=== PATIENT | male | born 1985 | race Caucasian/White ===

== ENCOUNTER 2017-01-14 10:35 | Emergency (ER) | payer SELFPAY ==
[~2017-01-14 10:35] MED LIST: NAPR550 PO; SULF1TAB47 PO; Z.0.NO CURRENT MEDS
[2017-01-14 10:37] VITALS: BP 146/95; PULSE 85; RESP 14; TEMP 98; O2SAT 98
[2017-01-14] MEDS ORDERED: GABA300C5 PO (12:11)
[2017-01-14] MEDS ORDERED: AUGM875T3 PO (12:16)
[2017-01-14] MEDS ORDERED: IBUP800T23 PO (12:16)
--- NOTE | 2017-01-14 12:19 | PD ---
HPI Chief Complaint: Bite or Sting Time Seen by Provider: 12:15 Travel History International Travel<30 days: No Contact w/Intl Traveler<30days: No History of Present Illness HPI 32-year-old male presents to emergency Department with complaint of dog bite wound to right hand that occurred last night. He is unaware of the vaccination status of the dog. He says animal control is going to the agency owner's house to find out vaccination status today. Denies being up-to-date on his tetanus vaccination. Has clean the wound and applied a cover bandage. Denies fever, vomiting. Denies paresthesias, loss of sensation, decreased range of motion, decreased strength to the affected extremity. Denies decreased range of motion to all fingers. Took ibuprofen last night with some relief of pain. Allergies to Risperdal. Has no other medical complaints. No other modifying factors or associated signs and symptoms. PFSH Past Medical History Blood Disorders: No Bipolar Disorder: Yes Anxiety: Yes Depression: Yes Diminished Hearing: No Migraines: Yes Seizures: Yes (3-4 YEARS AGO AFTER A DRUG OVERDOSE) Tetanus Vaccination: > 5 Years Influenza Vaccination: No Past Surgical History Other Surgery: Yes (TUBES BILAT A CHILD) Social History Alcohol Use: Yes (6-12 PACK BEER DAILY) Tobacco Use: Yes (1 TO 1 AND 1/2 PPD) Substance Use: Yes (HISTORY OF XANAX, ECTASY USE (FORMERLY)) Allergies-Medications (Allergen,Severity, Reaction): Coded Allergies: Risperdal (Verified Allergy, Severe, ANAPHYLAXIS, 01/14/17) Reported Meds & Prescriptions Reported Meds & Active Scripts Active Ibuprofen 800 Mg Tab 800 Mg PO Q6HR PRN Augmentin (Amoxicillin-Clavulanate) 875-125 Mg Tab 1 Tab PO BID 10 Days Reported Gabapentin 300 Mg Cap 300 Mg PO QID Review of Systems Except as stated in HPI: all other systems reviewed are Neg Physical Exam Narrative GENERAL: Well-nourished, well-developed male patient, in no acute distress; afebrile, nontoxic-appearing SKIN: Warm and dry. Approximately 1 cm laceration to the right thenar eminence ; without erythema; minimal bright red drainage and with mild edema; All fingers with full range of motion; Thumb with good opposition and full range of motion. Right upper extremity is supple and non-tense with 2+ radial pulse and sensory intact without erythema or edema; no lymphangitis. HEAD: Atraumatic. Normocephalic. EYES: Pupils equal and round. No scleral icterus. No injection or drainage. ENT: Mucosa pink and moist. Airway patent. NECK: Trachea midline. CARDIOVASCULAR: Regular rate. RESPIRATORY: No accessory muscle use. GASTROINTESTINAL: Obese. MUSCULOSKELETAL: No obvious deformities. No clubbing. No cyanosis. No edema. NEUROLOGICAL: Awake and alert. Oriented 3. No obvious cranial nerve deficits. Motor grossly within normal limits. Normal speech. PSYCHIATRIC: Appropriate mood and affect; insight and judgment normal. Data Data Last Documented VS Vital Signs Date Time Temp Pulse Resp B/P Pulse Ox O2 Delivery O2 Flow Rate FiO2 01/14/17 10:37 98.0 85 14 146/95 98 Orders Hand, Complete (Vhp1bhd) (01/14/17 ) Wound Care (01/14/17 12:23) Tetanus/Diphtheria Tox Adult (Tetanus/Di (01/14/17 12:30) Ibuprofen (Motrin) (01/14/17 12:30) MDM Medical Decision Making Medical Screen Exam Complete: Yes Emergency Medical Condition: Yes Medical Record Reviewed: Yes Differential Diagnosis Dogbite wound, laceration, medical clearance Narrative Course 32-year-old male with right hand laceration secondary to dog bite. The laceration will be left to heal by secondary intention. Vaccination status of dog is unknown. Patient declines initiation of rabies protocol at this time. He wants to obtain the dog's vaccination status first. Insect patient to follow up with health department or return to the emergency department for rabies vaccination if wanted. Wound care provided. Tetanus updated in the ER. 1229: Right hand x-ray with no acute findings. Ibuprofen and Augmentin prescribed for home. Patient verbalizes understanding and agreement with treatment plan. Patient is medically cleared and stable for discharge. Discussed reasons to return to the emergency department. Instructed patient to follow up with primary care provider. Patient agrees with treatment plan. The patients vital signs are stable and the patient is stable for outpatient follow- up and treatment. Patient discharged home, stable and in no acute distress. Diagnosis Primary Impression: Dog bite of right hand Qualified Code: S61.451A - Dog bite of right hand, initial encounter Additional Impression: Laceration of hand, right Qualified Code: S61.411A - Laceration of right hand without foreign body, initial encounter Referrals: [facility] Primary Care Physician Patient Instructions: Animal Bite (ED), General Instructions Departure Forms: Tests/Procedures, Work Release Enter return to work date: Jan 15, 2017 Additional Instructions: Keep area clean and dry Ibuprofen or Tylenol as directed and as needed for pain and inflammation Ice pack to area as needed to decrease pain Follow-up with primary care provider Follow up with health department Return to the emergency department immediately with worsening of symptoms, particularly if reddened streaks up or down the affected extremity from the wound site, fever, numbness/tingling in the affected extremity, loss of sensation in the affected extremity, severe swelling of the affected Med/Other Pt SpecificInfo: Prescription(s) given Scripts Ibuprofen 800 Mg [id number] Mg PO Q6HR PRN (PAIN) #30 TAB Ref 0 Prov:Felicity Engel 01/14/17 Amoxicillin-Clavulanate (Augmentin)875-125 Mg Tab1 Tab PO BID 10 Days Ref 0 Prov:Felicity Engel 01/14/17 Disposition: 01 DISCHARGE HOME Condition: Stable Felicity Engel Jan 14, 2017 12:19
--- NOTE | 2017-01-14 12:26 | RADRPT ---
EXAM DATE/TIME: 01/14/2017 11:43 [facility] COMPARISON: No previous studies available for comparison. INDICATIONS : Right hand pain, dog bite. MEDICAL HISTORY : None. SURGICAL HISTORY : None. ENCOUNTER: Initial ACUITY: 2 days PAIN SCORE: 7/10 LOCATION: Right hand, first metacarpal FINDINGS: 3 views of the right hand. Bone alignment within normal limits. No evidence of fracture. CONCLUSION: No evidence of fracture. Tez Bishop MD on January 14, 2017 at 12:23 Board Certified Radiologist. This report was verified electronically.
[2017-01-14] MEDS ORDERED: IBUPROFEN 800 MG TAB PO ONE (12:30)
[2017-01-14] MEDS ORDERED: TETANUS/DIPHTHERIA TOXOID ADULT 0.5 ML VIAL IM ONE (12:30)
== END 2017-01-14 12:57 | disposition home or self-care (01) ==
LOC: NEPK 10:35
DX: S61.451A Open bite of right hand, initial encounter (principal); W54.0XXA Bitten by dog, initial encounter; Z23 Encounter for immunization
CPT/HCPCS: 73130; 90471; 90714

== ENCOUNTER 2017-05-01 13:14 | Emergency (ER) | payer SELFPAY ==
[~2017-05-01] VITALS: Ht 180.3 cm; Wt 93.1 kg
[~2017-05-01 13:14] MED LIST changes: +AUGM875T3 PO; +GABA300C5 PO; +IBUP800T23 PO; -NAPR550 PO; -SULF1TAB47 PO; -Z.0.NO CURRENT MEDS
[2017-05-01 13:15] VITALS: BP 128/75; PULSE 93; RESP 24; TEMP 98.6; O2SAT 97
--- NOTE | 2017-05-01 13:26 | PD ---
Physical Exam Date Seen by Provider: May 01, 2017 Time Seen by Provider: 13:22 Narrative 32-year-old white male presents to emergency department with complaints of left inguinal hernia. He states that he had carried large amount of furniture for 11 hours moving a family member the day before. He states that in the last 24 hours she's noticed a large lump in his left scrotum. No fever chills. No nausea vomiting. No urinary stooling issues. Pain is moderate Vital signs reviewed. Awaiting bed placement. Data Data Last Documented VS Vital Signs Date Time Temp Pulse Resp B/P (MAP) Pulse Ox O2 Delivery O2 Flow Rate FiO2 05/01/17 13:15 98.6 93 24 128/75 (92) 97 Room Air [facility] Medical Record Reviewed: No Supervised Visit with ANTONIA: Jordan Borja May 01, 2017 13:26
[2017-05-01] MEDS ORDERED: AZITHROMYCIN 250 MG TAB PO ONE (13:45)
[2017-05-01] MEDS ORDERED: cefTRIAXone 250 MG VIAL IM ONE (13:45)
[2017-05-01] MEDS ORDERED: DOXYCYCLINE HYCLATE 100 MG CAP PO ONE (13:45)
[2017-05-01] MEDS ORDERED: ONDANSETRON HCL 4 MG/2 ML VIAL IVP ONE (13:45)
[2017-05-01] MEDS ORDERED: SODIUM CHLORIDE 0.9% FLUSH 10 ML FLUSH IVF PRN (13:45)
[2017-05-01] MEDS ORDERED: LIDOCAINE HCL 1% 50 ML VIAL XX ONE (13:45)
[2017-05-01] MEDS ORDERED: MORPHINE SULFATE 4 MG/ML INJ IV PUSH ONE (13:45)
--- NOTE | 2017-05-01 14:41 | RADRPT ---
EXAM DATE/TIME: 05/01/2017 13:52 [facility] COMPARISON: No previous studies available for comparison. INDICATIONS : Left inguinal/scrotal pain. MEDICAL HISTORY : Seizures. Migraines. Bipolar disorder. Depression. Anxiety. Substance use. SURGICAL HISTORY : Bilateral tympanostomy tubes. ENCOUNTER: Initial ACUITY: 1 day PAIN SCORE: 10/10 LOCATION: Bilateral scrotum. MEASUREMENTS: RIGHT TESTICLE: 4.0 x 2.6 x 2.0cm LEFT TESTICLE: 4.3 x 2.7 x 2.6cm FINDINGS: RIGHT TESTICLE: Homogeneous echotexture without intra or extratesticular mass. Blood flow is within normal limits. No hydrocele or varicocele. Epididymis is within normal limits. LEFT TESTICLE: Homogeneous echotexture without intra or extratesticular mass. Blood flow is increased. No signific ant hydrocele or varicocele. Epididymis is enlarged with hypervascularity. SCROTUM: Within normal limits. CONCLUSION: Left epididymitis with likely associated left orchitis. Jethro Perez MD on May 01, 2017 at 14:38 Board Certified Radiologist. This report was verified electronically.
--- NOTE | 2017-05-01 14:42 | PD ---
HPI Chief Complaint: Complaint Time Seen by Provider: 13:28 Travel History International Travel<30 days: No Contact w/Intl Traveler<30days: No Traveled to known affect area: No History of Present Illness HPI Patient is a 32-year-old male presenting to the emergency department for evaluation of possible hernia in his groin. Patient states that days ago he had tenderness in the left testicle, 2 days ago the pain intensified quickly. He states his left testicle is swollen and tender, he also reports dysuria. Patient believes it was related to lifting and helping his girlfriend move 2 days ago. He denies any fever, chills, abdominal pain, back pain. Past medical history is significant for hypertension, bipolar disorder, anxiety, depression. Patient states that he has a history of IV drug use but has not used in over a year since he got out of half-way. He does report using Suboxone occasionally. He has had recent unprotected sex however he is in a monogamous relationship. PFSH Past Medical History Blood Disorders: No Bipolar Disorder: Yes Anxiety: Yes Depression: Yes Diminished Hearing: No Migraines: Yes Seizures: Yes (3-4 YEARS AGO AFTER A DRUG OVERDOSE) Past Surgical History Other Surgery: Yes (TUBES BILAT A CHILD) Social History Alcohol Use: Yes (6-12 PACK BEER DAILY) Tobacco Use: Yes (1 TO 1 AND 1/2 PPD) Substance Use: No (history of IV drug use, clean for over a year) Allergies-Medications (Allergen,Severity, Reaction): Coded Allergies: risperidone (Unverified Allergy, Severe, ANAPHYLAXIS, 03/26/17) Reported Meds & Prescriptions Reported Meds & Active Scripts Active Tramadol (Tramadol HCl) 50 Mg Tab 50 Mg PO Q6H PRN Doxycycline Hyclate DR (Doxycycline Hyclate) 100 Mg Tab 100 Mg PO BID 10 Days Ibuprofen 800 Mg Tab 800 Mg PO Q6HR PRN Augmentin (Amoxicillin-Clavulanate) 875-125 Mg Tab 1 Tab PO BID 10 Days Reported Gabapentin 300 Mg Cap 300 Mg PO QID Review of Systems Except as stated in HPI: all other systems reviewed are Neg Genitourinary: Positive: Dysuria, Other (testicle pain) Physical Exam Narrative GENERAL: Well-developed, well-nourished, alert male. Appears uncomfortable, in no acute distress. SKIN: Warm and dry. HEAD: Atraumatic. Normocephalic. EYES: Pupils equal and round. No scleral icterus. No injection or drainage. ENT: No nasal bleeding or discharge. Mucous membranes pink and moist. NECK: Trachea midline. No JVD. CARDIOVASCULAR: Regular rate and rhythm. RESPIRATORY: No accessory muscle use. Clear to auscultation. Breath sounds equal bilaterally. GASTROINTESTINAL: Abdomen soft, non-tender, nondistended. Hepatic and splenic margins not palpable. Positive bowel sounds, no rebound, no guarding. No obvious hernias noted on exam. MUSCULOSKELETAL: Extremities without clubbing, cyanosis, or edema. No obvious deformities. GENITOURINARY: Circumcised. Testes descended bilaterally without evidence of rotation. Left testicle is enlarged, significantly tender to palpation posteriorly. NEUROLOGICAL: Awake and alert. No obvious cranial nerve deficits. Motor grossly within normal limits. Five out of 5 muscle strength in the arms and legs. Normal speech. PSYCHIATRIC: Appropriate mood and affect; insight and judgment normal. Data Data Last Documented VS Vital Signs Date Time Temp Pulse Resp B/P (MAP) Pulse Ox O2 Delivery O2 Flow Rate FiO2 05/01/17 13:15 98.6 93 24 128/75 (92) 97 Room Air Orders Orders Ua Includes Microscopic (05/01/17 13:36) Gc And Chlamydia Pcr (05/01/17 13:36) Us Testicles W Doppler (05/01/17 13:36) Iv Access Insert/Monitor (05/01/17 13:36) Ondansetron Inj (Zofran Inj) (05/01/17 13:45) Sodium Chloride 0.9% Flush (Ns Flush) (05/01/17 13:45) Morphine Inj (Morphine Inj) (05/01/17 13:45) Azithromycin (Zithromax) (05/01/17 13:45) Ceftriaxone Inj (Rocephin Inj) (05/01/17 13:45) Lidocaine 1% Inj (50 Ml) (Xylocaine 1% I (05/01/17 13:45) Doxycycline (Vibramycin) (05/01/17 13:45) Labs Laboratory Tests Test 05/01/17 15:10 Urine Color YELLOW Urine Turbidity CLOUDY Urine pH 6.0 Urine Specific [place] 1.018 Urine Protein 100 mg/dL Urine Glucose (UA) NEG mg/dL Urine Ketones NEG mg/dL Urine Occult Blood MOD Urine Nitrite NEG Urine Bilirubin NEG Urine Urobilinogen LESS THAN 2.0 MG/DL Urine Leukocyte Esterase LARGE Urine RBC 19 /hpf Urine WBC /hpf Urine WBC Clumps MANY Urine Hyaline Casts 7 /lpf Urine Mucus FEW /lpf MDM Medical Decision Making Medical Screen Exam Complete: Yes Emergency Medical Condition: Yes Interpretation(s) Vital Signs Date Time Temp Pulse Resp B/P (MAP) Pulse Ox O2 Delivery O2 Flow Rate FiO2 05/01/17 13:15 98.6 93 24 128/75 (92) 97 Room Air Differential Diagnosis Epididymitis vs torsion vs orchitis vs uti vs hernia Narrative Course Patient is a 32-year-old male presenting to emergency for evaluation of left testicle pain. Patient is significantly tender on exam. His vital signs are stable. Labs and imaging ordered and pending. Morphine ordered for pain. Pt reports being in a monogamous relationship however he is at risk for STD's and will be treated presumptively.Pt to be discharged home Ultrasound shows left epididymitis likely orchitis. Patient was given Rocephin and azithromycin in the emergency department. Urinalysis is ordered and pending , GC and chlamydia is ordered and pending. Pt to be discharged home on doxycycline. He was advised that he should begin to feel better in 48-72 hours. He was advised that he will be notified of results and if positive his partner will need to be tested and/or treated. He was advised to avoid sexual activity until he knows test results. he was advised to follow up with PCP. He was given strict return precautions. Pt verbalized understanding of these instructions. Pt is stable for discharge. Diagnosis Primary Impression: Epididymo-orchitis Referrals: [facility] Primary Care Physician Patient Instructions: Epididymo-Orchitis (GEN), General Instructions Departure Forms: Tests/Procedures, Work Release Enter return to work date: May 05, 2017 Special Instructions: May return sooner if feeling better. Additional Instructions: Complete full course of antibiotics as prescribed Avoid sexual activity until you are notified of test results Test results a positive partner will need to be tested and/or treated as well. You should begin to feel better within 48-72 hours of starting antibiotics Return to emergency department immediately for any new or worsening symptoms Maintain adequate fluid intake Do not drive or operate machinery while taking narcotic pain medication Med/Other Pt SpecificInfo: Prescription(s) given Scripts Tramadol (Tramadol) 50 Mg Tab 50 MG PO Q6H Y for PAIN, #12 TAB 0 Refills Prov: Carmelita Mcmahan 05/01/[address] (Doxycycline Hyclate DR) 100 Mg Tab 100 MG PO BID for Infection for 10 Days, #20 TAB 0 Refills Prov: Carmelita Mcmahan 05/01/17 Disposition: 01 DISCHARGE HOME Condition: Stable Carmelita Mcmahan May 01, 2017 14:41
[2017-05-01 15:42] LABS: BLOOD, URINE MOD (NEG); GLUCOSE,URINE NEG (NEG); HYALINE CAST, URINE 7 /lpf (RARE); KETONE, URINE NEG (NEG); MUCUS URINE FEW /lpf (OCC); NITRITE,URINE NEG (NEG); URINE COLOR YELLOW (YELLW/STRAW)
[2017-05-01] MEDS ORDERED: TRAM50TA PO (15:43)
[2017-05-01] MEDS ORDERED: DOXY1TAB6 PO (15:43)
[2017-05-01 18:18] LABS: CHLAMYDIA PCR DETECTED (NOT DETECT); NEISSERIA PCR NOT DETECTED (NOT DETECT)
== END 2017-05-01 16:09 | disposition home or self-care (01) ==
LOC: NEPD 13:14
DX: N45.3 Epididymo-orchitis (principal); N50.812 Left testicular pain; F17.200 Nicotine dependence, unspecified, uncomplicated
CPT/HCPCS: 76870; 81001; 87491; 87591; 93975; 96372; 96374; 96375; 99285; J0696; J2270; J2405

== ENCOUNTER 2017-12-25 12:08 | Inpatient (IN) | payer SELFPAY ==
[~2017-12-25] VITALS: Ht 177.8 cm; Wt 93.0 kg
[~2017-12-25 12:08] MED LIST changes: +DOXY1TAB6 PO; +IBUP1TAB7 PO; -IBUP800T23 PO; +TRAM50TA PO
[2017-12-25 12:15] VITALS: BP 124/71; PULSE 105; RESP 20; TEMP 98.8; O2SAT 98
[2017-12-25] MEDS ORDERED: BUPR100CR PO (12:39)
[2017-12-25] MEDS ORDERED: GABA600T PO (12:39)
[2017-12-25] MEDS ORDERED: KETOROLAC TROMETHAMINE 30 MG/ML (IVP) VIAL IVP ONE (12:45)
--- NOTE | 2017-12-25 13:37 | RADRPT ---
EXAM DATE/TIME: 12/25/2017 12:57 [facility] COMPARISON: No previous studies available for comparison. INDICATIONS : Swelling, discolored, possible foreign body. MEDICAL HISTORY : None. SURGICAL HISTORY : None. ENCOUNTER: Initial ACUITY: 3 days PAIN SCORE: 10/10 LOCATION: Right hand FINDINGS: Two view examination of the right hand demonstrates diffuse soft tissue swelling about the dorsum of the hand. No bony fracture or dislocation. The joint spaces are maintained. Bony mineralization is normal. CONCLUSION: 1. Soft tissue swelling about the dorsum of the hand without radiopaque foreign bodies. 2. No acute fracture or dislocation. Vikash Caruso MD on December 25, 2017 at 13:33 Board Certified Radiologist. This report was verified electronically.
[2017-12-25] MEDS ORDERED: VANCOMYCIN INJ 1,000 MG in SODIUM CHLOR 0.9% 250 ML INJ 250 ML IV ONE (13:45)
[2017-12-25 14:00] LABS: AUTOMATED NEUTROPHIL # 13.6 TH/MM3 (1.8-7.7); BASOPHIL % 0.2 % (0.0-2.0); EOSINOPHIL % 0.1 % (0.0-4.0); HEMATOCRIT 41.4 % (39.0-51.0); HEMOGLOBIN 14.1 GM/DL (13.0-17.0); LYMPH % 7.1 % (9.0-44.0); LYMPHOCYTE # 1.1 TH/MM3 (1.0-4.8); MEAN CELL VOLUME 93.3 FL (80.0-100.0); MEAN CORPUSCULAR HEMOGLOBIN 31.7 PG (27.0-34.0); MEAN PLATELET VOLUME 7.1 FL (7.0-11.0); MONO % 7.4 % (0.0-8.0); MONOCYTE # 1.2 TH/MM3 (0-0.9); NEUT % 85.2 % (16.0-70.0); PLATELET COUNT 215 TH/MM3 (150-450); RED BLOOD COUNT 4.44 MIL/MM3 (4.50-5.90); RED CELL DISTRIBUTION WIDTH 12.2 % (11.6-17.2)
[2017-12-25 14:23] LABS: BICARBONATE 33.5 MEQ/L (21.0-32.0); CALCIUM 9.1 MG/DL (8.5-10.1); CREATININE 0.95 MG/DL (0.60-1.30)
--- NOTE | 2017-12-25 14:44 | PD ---
HPI Chief Complaint: Skin Problem Time Seen by Provider: 12:30 Travel History International Travel<30 days: No Contact w/Intl Traveler<30days: No Traveled to known affect area: No History of Present Illness HPI 32-year-old [id number]-yrfsqapc male presents to the ED for evaluation of redness, pain and swelling of the right hand and arm 2 days. Patient endorses injecting IV drugs in the area a few days and states "I missed the vein." He endorses sweats and chills but has not measured a fever at home. He endorses mild limitations to range of motion of the hand secondary to edema. He denies numbness, tingling, weakness. He denies history of MRSA. Last used Suboxone today. No treatment attempted at home. PFSH Past Medical History Blood Disorders: No Bipolar Disorder: Yes Anxiety: Yes Depression: Yes Diminished Hearing: No Migraines: Yes Seizures: Yes Past Surgical History Surgical History: No Previous Surgery Other Surgery: Yes (TUBES BILAT A CHILD) Social History Alcohol Use: Yes (6-12 PACK BEER DAILY) Tobacco Use: Yes (1 TO 1 AND 1/2 PPD) Substance Use: Yes (ALL DRUGS ) Allergies-Medications (Allergen,Severity, Reaction): Coded Allergies: risperidone (Unverified Allergy, Severe, ANAPHYLAXIS, 12/25/17) Reported Meds & Prescriptions Reported Meds & Active Scripts Active Reported Gabapentin 600 Mg Tab 600 Mg PO Q6HR Wellbutrin SR 12 HR (Bupropion HCl) 100 Mg Tab 100 Mg PO Q12HR Review of Systems Except as stated in HPI: all other systems reviewed are Neg Physical Exam Narrative GENERAL: Well-nourished, well-developed white male no acute distress. SKIN: Focused skin assessment warm/dry. Multiple tattoos. HEAD: Normocephalic. EYES: No scleral icterus. No injection or drainage. NECK: Supple, trachea midline. No JVD or lymphadenopathy. CARDIOVASCULAR: Regular rate and rhythm without murmurs, gallops, or rubs. RESPIRATORY: Breath sounds clear and equal bilaterally. No accessory muscle use. GASTROINTESTINAL: Abdomen soft, non-tender, nondistended. Active bowel sounds. MUSCULOSKELETAL: No cyanosis, or edema. FOCUSED RIGHT UPPER EXTREMITY EXAM: 2+ radial pulse. The distal hand is edematous, tender, erythematous. This extends to the mid forearm. Compartments of the arm are soft. There is a single puncture wound on the dorsum of the hand. No palpable foreign body. No discharge. Patient is able to flex and extend the digits and the wrist. Neurovascularly intact distally. BACK: Nontender without obvious deformity. No CVA tenderness. Data Data Last Documented VS Vital Signs Date Time Temp Pulse Resp B/P (MAP) Pulse Ox O2 Delivery O2 Flow Rate FiO2 12/25/17 12:15 98.8 105 20 124/71 (88) 98 Orders Orders Basic Metabolic Panel (Bmp) (12/25/17 12:43) Complete Blood Count With Diff (12/25/17 12:43) Blood Culture (12/25/17 12:43) Iv Access Insert/Monitor (12/25/17 12:43) Ketorolac Inj (Toradol Inj) (12/25/17 12:45) Hand, Limited (2vws) (12/25/17 12:44) Ct Forearm W Iv Contrast (12/25/17 ) Ct Hand W Iv Contrast (12/25/17 ) Vancomycin Inj (Vancomycin Inj) (12/25/17 13:45) Lactic Acid (12/25/17 14:30) Iohexol 350 Inj (Omnipaque 350 Inj) (12/25/17 15:06) Nicotine 21 Mg Patch.24 Hr (Habitrol 21 (12/25/17 15:30) Sodium Chlor 0.9% 1000 Ml Inj (Ns 1000 M (12/25/17 15:27) Consult Hand Surgery (12/25/17 ) Admit Order (Ed Use Only) (12/25/17 15:43) Labs Laboratory Tests Test 12/25/17 13:40 12/25/17 15:23 White Blood Count 16.0 TH/MM3 Red Blood Count 4.44 MIL/MM3 Hemoglobin 14.1 GM/DL Hematocrit 41.4 % Mean Corpuscular Volume 93.3 FL Mean Corpuscular Hemoglobin 31.7 PG Mean Corpuscular Hemoglobin Concent 34.0 % Red Cell Distribution Width 12.2 % Platelet Count 215 TH/MM3 Mean Platelet Volume 7.1 FL Neutrophils (%) (Auto) 85.2 % Lymphocytes (%) (Auto) 7.1 % Monocytes (%) (Auto) 7.4 % Eosinophils (%) (Auto) 0.1 % Basophils (%) (Auto) 0.2 % Neutrophils # (Auto) 13.6 TH/MM3 Lymphocytes # (Auto) 1.1 TH/MM3 Monocytes # (Auto) 1.2 TH/MM3 Eosinophils # (Auto) 0.0 TH/MM3 Basophils # (Auto) 0.0 TH/MM3 CBC Comment DIFF FINAL Differential Comment Blood Urea Nitrogen 14 MG/DL Creatinine 0.95 MG/DL Random Glucose 103 MG/DL Calcium Level 9.1 MG/DL Sodium Level 138 MEQ/L Potassium Level 3.5 MEQ/L Chloride Level 97 MEQ/L Carbon Dioxide Level 33.5 MEQ/L Anion Gap 8 MEQ/L Estimat Glomerular Filtration Rate 93 ML/MIN MDM Medical Decision Making Medical Screen Exam Complete: Yes Emergency Medical Condition: Yes Differential Diagnosis Foreign body versus cellulitis versus sepsis versus compartment syndrome versus necrotizing fasciitis versus other Narrative Course 32-year-old gvvxe-fhhu-zogfmyic male presents to the ED for evaluation of redness, pain and swelling of the right hand and arm 2 days. Patient endorses injecting IV drugs in the area as well as sweats and chills. Vitals reviewed. Patient is afebrile with a heart rate of 105 on presentation. On evaluation the patient seems altered, is nodding out during history gathering. Right arm with extensive cellulitic changes of edema, erythema, warmth and tenderness that extends to the mid forearm. Palpable pulses and sensation intact distally. IV was established. Patient was administered 1 L normal saline. Blood cultures were obtained. Patient was administered 1 g IV vancomycin. CBC: WBC 16.0, neutrophil predominant. CMP unremarkable. Lactic acid: Pending. CXR: Soft tissue swelling of the dorsum of the hand without radiopaque foreign body. No fracture dislocation per radiology read. CT hand and forearm: Soft tissue cellulitis without evidence of deep space abscess. Tiny collection of air in the ventral radial side of the hand sitting just above the distal radius. No other inflammatory changes noted. Results per radiology read. An additional liter of NS was administered. I discussed the results of the workup with the patient as well as the recommendation for admission for IV antibiotics. Patient is agreeable on the conditions that he can have a nicotine patch and his girlfriend can visit. Consult placed with hand surgery. I spoke with Dr. Thakkar who agrees to accept the patient to the medicine service. Please see hand surgery and medicine notes for disposition. Sepsis Criteria SIRS Criteria (2 or more): Heart rate over 90, WBC > 12343, < 4000 or > 10% bands Sepsis Criteria (SIRS+source): Infect source susp/known Clary Love December 25, 2017 14:44
[2017-12-25] MEDS ORDERED: IOHEXOL 350 MG/ML 10 ML VIAL (for RAD DIAG) IVCONTRAST ONE (15:06)
[2017-12-25] MEDS ORDERED: SODIUM CHLOR 0.9% 1000 ML INJ 1,000 ML IV SCH (15:27)
[2017-12-25] MEDS ORDERED: NICOTINE 21 MG/24 HR PATCH T-DERMAL ONE (15:30)
--- NOTE | 2017-12-25 15:42 | RADRPT ---
EXAM DATE/TIME: 12/25/2017 14:54 [facility] COMPARISON: No previous studies available for comparison. INDICATIONS : Right forearm swelling and redness. IV drug user. IV CONTRAST: 94 cc Omnipaque 350 (iohexol) IV ; Cumulative dose for multiple exams. RADIATION DOSE: 7.03 CTDIvol (mGy) ; Combined studies MEDICAL HISTORY : Non-responsive SURGICAL HISTORY : Non-responsive ENCOUNTER: Initial ACUITY: 1 day PAIN SCALE: 5/10 LOCATION: Right forearm TECHNIQUE: Volumetric scanning of the forearm was performed. Using automated exposure control and adjustment of the mA and/or kV according to patient size, radiation dose was kept as low as reasonably achievable to obtain optimal diagnostic quality images. DICOM format image data is available electronically fo r review and comparison. FINDINGS: There is generalized cellulitis of the forearm dorsally lateral side with no evidence for deep space abscess. I do not see venous thrombosis. I do not see osteomyelitis. CONCLUSION: Superficial cellulitis negative for deep space abscess. Close surveillance is suggested. Chris Pichardo MD FACR on December 25, 2017 at 15:38 Board Certified Radiologist. This report was verified electronically.
--- NOTE | 2017-12-25 15:45 | RADRPT ---
EXAM DATE/TIME: 12/25/2017 14:54 [place] COMPARISON: No previous studies available for comparison. INDICATIONS : Right hand swelling and redness for 2 days. IV drug user. IV CONTRAST: 94 cc Omnipaque 350 (iohexol) IV ; Cumulative dose for multiple exams. RADIATION DOSE: 7.03 CTDIvol (mGy) ; Combined studies MEDICAL HISTORY : None SURGICAL HISTORY : None. ENCOUNTER: Initial ACUITY: 1 day PAIN SCALE: 4/10 LOCATION: Right arm TECHNIQUE: Volumetric scanning of the hand was performed. Using automated exposure control and adjustment of th e mA and/or kV according to patient size, radiation dose was kept as low as reasonably achievable to obtain optimal diagnostic quality images. DICOM format image data is available electronically for re view and comparison. FINDINGS: There is generalized soft tissue swelling of the hand and worse on the dorsal aspect without deep spa ce abscess. There is no evidence of myelitis. There is tiny collection of air series 304 image 69 that may be re lated to an injection. This tiny collection of air is in the deep tissues. CONCLUSION: Generalized soft tissue swelling without obvious distinct abscess. Tiny collection o f air on the ventral radial side of the hand sitting just above the distal radius. There are no othe r associated inflammatory changes. Careful surveillance is suggested. Chris Pichardo MD FACR on December 25, 2017 at 15:40 Board Certified Radiologist. This report was verified electronically.
[2017-12-25 15:47] VITALS: BP 124/72; PULSE 91; RESP 14; O2SAT 98
[2017-12-25] MEDS ORDERED: VANCOMYCIN 1,000 MG/NS 250 ML IV ONE ×2 (16:00)
--- NOTE | 2017-12-25 16:13 | HHI.HP ---
HPI Service [facility] Primary Care Physician No Primary Care Physician Admission Diagnosis Right upper extremity cellulitis, IVDA Diagnoses: Chief Complaint: Hand swelling Travel History International Travel<30 Days: No Contact w/Intl Traveler <30 Da: No Traveled to Known Affected Are: No History of Present Illness 32-year-old white male being admitted for sepsis. Patient was in his usual state of health until about 2 days ago when he was injecting himself in his arm attempting IV drug use. Since then his right hand has become more swollen and painful. Says yesterday it was the most painful. But then today pain improved partially but he was still concerned enough to come to the hospital. Reports subjective fevers and chills as well as nausea. Patient gets very anxious when he hears that it will take approximately 48 hours for the blood cultures come back to ensure he does not have bacteremia. He says he was incarcerated before and he gets quite anxious just father being the thought of staying in the hospital for a few days even for necessary medical care. Review of Systems Except as stated in HPI: all other systems reviewed are Neg Past Family Social History Past Medical History Anxiety Allergies: Coded Allergies: risperidone (Unverified Allergy, Severe, ANAPHYLAXIS, 12/25/17) Social History Has a history of incarceration Active history of drug use Smokes cigarettes daily Physical Exam Vital Signs Vital Signs Date Time Temp Pulse Resp B/P (MAP) Pulse Ox O2 Delivery O2 Flow Rate FiO2 12/25/17 15:47 91 14 124/72 (89) 98 Room Air 12/25/17 12:15 98.8 105 20 124/71 (88) 98 Physical Exam VS: afebrile GENERAL: Young well-nourished white male, in distress secondary to anxiety SKIN: Warm and dry. EYES:No scleral icterus. No injection or drainage. ENT: No nasal bleeding or discharge. Normocephalic, atraumatic CARDIOVASCULAR: Regular rate and rhythm. no murmurs RESPIRATORY: No accessory muscle use. Clear to auscultation. Breath sounds equal bilaterally. GASTROINTESTINAL: Abdomen soft, non-tender, nondistended. Hepatic and splenic margins not palpable. Extremities: No clubbing, cyanosis. MUSCULOSKELETAL: Globally edematous right hand to moderate extent. Has inoculation injury site on the dorsum of the hand. Is unable to fully flex the hand into for prescription and is unable to fully extend the hand. Has pain noted upon flexing the hand especially palpating forearm flexor compartments. Adequate muscle bulk and tone for age and habitus NEUROLOGICAL: Awake and alert. No obvious cranial nerve deficits. No facial droop nor slurred speech noted. PSYCHIATRIC: Appropriate mood and affect; insight and judgment normal. Laboratory Laboratory Tests Test 12/25/17 13:40 12/25/17 15:23 White Blood Count 16.0 Red Blood Count 4.44 Hemoglobin 14.1 Hematocrit 41.4 Mean Corpuscular Volume 93.3 Mean Corpuscular Hemoglobin 31.7 Mean Corpuscular Hemoglobin Concent 34.0 Red Cell Distribution Width 12.2 Platelet Count 215 Mean Platelet Volume 7.1 Neutrophils (%) (Auto) 85.2 Lymphocytes (%) (Auto) 7.1 Monocytes (%) (Auto) 7.4 Eosinophils (%) (Auto) 0.1 Basophils (%) (Auto) 0.2 Neutrophils # (Auto) 13.6 Lymphocytes # (Auto) 1.1 Monocytes # (Auto) 1.2 Eosinophils # (Auto) 0.0 Basophils # (Auto) 0.0 CBC Comment DIFF FINAL Differential Comment Blood Urea Nitrogen 14 Creatinine 0.95 Random Glucose 103 Calcium Level 9.1 Sodium Level 138 Potassium Level 3.5 Chloride Level 97 Carbon Dioxide Level 33.5 Anion Gap 8 Estimat Glomerular Filtration Rate 93 Date/Time Source Procedure Growth Status 12/25/17 13:40 Blood Peripheral Aerobic Blood Culture Pending Received 12/25/17 13:40 Blood Peripheral Anaerobic Blood Culture Pending Received Result Diagram: 12/25/17 1340 12/25/17 1340 Imaging Last Impressions Hand X-Ray 12/25/17 1244 Signed Impressions: Service Date/Time: Monday, December 25, 2017 12:57 - CONCLUSION: 1. Soft tissue swelling about the dorsum of the hand without radiopaque foreign bodies. 2. No acute fracture or dislocation. Vikash Caruso MD Upper Extremity CT 12/25/17 0000 Signed Impressions: Service Date/Time: Monday, December 25, 2017 14:54 - CONCLUSION: Generalized soft tissue swelling without obvious distinct abscess. Tiny collection of air on the ventral radial side of the hand sitting just above the distal radius. There are no other associated inflammatory changes. Careful surveillance is suggested. Chris Pichardo MD FACR Issac VTE Risk Assessment Cap[place]hela VTE Risk Assessment: No/Low Risk (score <= 1) Caprini Risk Assessment Model Point Value = 1 Point Value = 2 Point Value = 3 Point Value = 5 Age 41-60 Minor surgery BMI > 25 kg/m2 Swollen legs Varicose veins or History of unexplained or recurrent spontaneous Oral contraceptives or hormone replacement Sepsis (< 1 month) Serious lung disease, including pneumonia (< 1 month) Abnormal pulmonary function Acute myocardial infarction Congestive heart failure (< 1 month) History of inflammatory bowel disease Medical patient at bed rest Age 61-74 Arthroscopic surgery Major open surgery (> 45 min) Laparoscopic surgery (> 45 min) Malignancy Confined to bed (> 72 hours) Immobilizing plaster cast Central venous access Age >= 75 History of VTE Family history of VTE Factor V Leiden Prothrombin [id number] Lupus anticoagulant Anticardiolipin antibodies Elevated serum homocysteine Heparin-induced thrombocytopenia Other congenital or acquired thrombophilia Stroke (< 1 month) Elective arthroplasty Hip, pelvis, or leg fracture Acute spinal cord injury (< 1 month) Prophylaxis Regimen Total Risk Factor Score Risk Level Prophylaxis Regimen 0-1 Low Early ambulation 2 Moderate Order ONE of the following: *Sequential Compression Device (SCD) *Heparin 5000 units SQ BID 3-4 Higher Order ONE of the following medications: *Heparin 5000 units SQ TID *Enoxaparin/Lovenox 40 mg SQ daily (WT < 150 kg, CrCl > 30 mL/min) *Enoxaparin/Lovenox 30 mg SQ daily (WT < 150 kg, CrCl > 10-29 mL/min) *Enoxaparin/Lovenox 30 mg SQ BID (WT < 150 kg, CrCl > 30 mL/min) AND/OR *Sequential Compression Device (SCD) 5 or more Highest Order ONE of the following medications: *Heparin 5000 units SQ TID (Preferred with Epidurals) *Enoxaparin/Lovenox 40 mg SQ daily (WT < 150 kg, CrCl > 30 mL/min) *Enoxaparin/Lovenox 30 mg SQ daily (WT < 150 kg, CrCl > 10-29 mL/min) *Enoxaparin/Lovenox 30 mg SQ BID (WT < 150 kg, CrCl > 30 mL/min) AND *Sequential Compression Device (SCD) Assessment and Plan Assessment and Plan 32-year-old white male here for sepsis Sepsis -Suspect hand cellulitis with possible abscess -Blood cultures obtained, getting normal saline boluses Hand cellulitis -Continue vancomycin, adding Zosyn -Hand surgery consulted -CT hand showing small pocket of air, unsure if this bacterial produced vs inoculated air via IVDU Anxiety - continue home bupropion and gabapentin -As needed Vistaril, will try to avoid benzodiazepines given IV drug use history early ambulation Physician Certification 2 Midnight Certification Type: Admission for Inpatient Services Order for Inpatient Services The services are ordered in accordance with Medicare regulations or non- Medicare payer requirements, as applicable. In the case of services not specified as inpatient-only, they are appropriately provided as inpatient services in accordance with the 2-midnight benchmark. Estimated LOS (days): 3 3 days is the estimated time the patient will need to remain in the hospital, assuming treatment plan goals are met and no additional complications. Post-Hospital Plan: Not yet determined Jesus Thakkar MD December 25, 2017 16:13
[2017-12-25] MEDS ORDERED: SODIUM CHLOR 0.9% 1000 ML INJ 1,000 ML IV ONE (16:15)
[2017-12-25] MEDS ORDERED: Vancomycin Consult Pharmacy 1 EA OTHER SCH (16:15)
--- NOTE | 2017-12-25 16:36 | PD ---
Physical Exam Date Seen by Provider: December 25, 2017 Time Seen by Provider: 16:33 Narrative 32-year-old male was seen by my nurse practitioner for right hand redness and swelling. Patient is an IV drug abuser. This is been going on for past 2-3 days. Patient was slightly tachycardic in triage. Redness and swelling was all on the extensor aspect of the hand. Blood test revealed leukocytosis lactic acid was within normal limit. A CAT scan of the hand and forearm was done and show some air in the subcutaneous tissue with swelling suggestive of cellulitis. Patient has received IV vancomycin. Patient would require more IV antibiotics and hand surgeon to take a look at that hand for possible deep tissue washout. He has been admitted to the hospitalist. Data Data Last Documented VS Vital Signs Date Time Temp Pulse Resp B/P (MAP) Pulse Ox O2 Delivery O2 Flow Rate FiO2 12/25/17 12:15 98.8 105 20 124/71 (88) 98 Orders Orders Basic Metabolic Panel (Bmp) (12/25/17 12:43) Complete Blood Count With Diff (12/25/17 12:43) Blood Culture (12/25/17 12:43) Iv Access Insert/Monitor (12/25/17 12:43) Ketorolac Inj (Toradol Inj) (12/25/17 12:45) Hand, Limited (2vws) (12/25/17 12:44) Ct Forearm W Iv Contrast (12/25/17 ) Ct Hand W Iv Contrast (12/25/17 ) Vancomycin Inj (Vancomycin Inj) (12/25/17 13:45) Lactic Acid (12/25/17 14:30) Iohexol 350 Inj (Omnipaque 350 Inj) (12/25/17 15:06) Nicotine 21 Mg Patch.24 Hr (Habitrol 21 (12/25/17 15:30) Sodium Chlor 0.9% 1000 Ml Inj (Ns 1000 M (12/25/17 15:27) Consult Hand Surgery (12/25/17 ) Admit Order (Ed Use Only) (12/25/17 15:43) Labs Laboratory Tests Test 12/25/17 13:40 12/25/17 15:23 White Blood Count 16.0 TH/MM3 Red Blood Count 4.44 MIL/MM3 Hemoglobin 14.1 GM/DL Hematocrit 41.4 % Mean Corpuscular Volume 93.3 FL Mean Corpuscular Hemoglobin 31.7 PG Mean Corpuscular Hemoglobin Concent 34.0 % Red Cell Distribution Width 12.2 % Platelet Count 215 TH/MM3 Mean Platelet Volume 7.1 FL Neutrophils (%) (Auto) 85.2 % Lymphocytes (%) (Auto) 7.1 % Monocytes (%) (Auto) 7.4 % Eosinophils (%) (Auto) 0.1 % Basophils (%) (Auto) 0.2 % Neutrophils # (Auto) 13.6 TH/MM3 Lymphocytes # (Auto) 1.1 TH/MM3 Monocytes # (Auto) 1.2 TH/MM3 Eosinophils # (Auto) 0.0 TH/MM3 Basophils # (Auto) 0.0 TH/MM3 CBC Comment DIFF FINAL Differential Comment Blood Urea Nitrogen 14 MG/DL Creatinine 0.95 MG/DL Random Glucose 103 MG/DL Calcium Level 9.1 MG/DL Sodium Level 138 MEQ/L Potassium Level 3.5 MEQ/L Chloride Level 97 MEQ/L Carbon Dioxide Level 33.5 MEQ/L Anion Gap 8 MEQ/L Estimat Glomerular Filtration Rate 93 ML/MIN Lactic Acid Level 1.4 mmol/L MDM Supervised Visit with ANTONIA: Kerry Rowe MD December 25, 2017 16:36
[2017-12-25] MEDS ORDERED: NICOTINE 14 MG/24 HR PATCH T-DERMAL ONE (18:00)
[2017-12-25] MEDS: GABAPENTIN 300 MG CAP PO SCH ×2 (18:08→23:43)
[2017-12-25] MEDS: PIPERACIL-TAZO 3.375 GM PREMIX 50 ML IV SCH ×2 (18:12→23:43)
[2017-12-25 18:18] VITALS: BP 125/78; PULSE 98; RESP 18; TEMP 97.8; O2SAT 99
[2017-12-25 19:00] VITALS: BP 124/84; PULSE 101; RESP 18; TEMP 98.2; O2SAT 98
[2017-12-25 21:31] LABS: C-REACTIVE PROTEIN 7.9 MG/DL (0.00-0.30)
[2017-12-25] MEDS: buPROPion HCL 100 MG SUSTAINED RELEASE TAB PO SCH (22:29)
--- NOTE | 2017-12-25 22:37 | MP ---
cc: Ana Maria Albert MD, Sarah E MD DATE OF OPERATION: 12/25/2017 REASON FOR CONSULTATION: Swelling and erythema right hand. HISTORY OF PRESENT ILLNESS: Jacobo Dean is a 32-year-old right hand dominant male, who states that he injected heroin first over the right forearm and then over the ulnar aspect of the right hand approximately 2 days ago. He presented to the Emergency Room this morning for worsening pain and swelling over the right hand. He denies any paresthesias. He states he did have a prior abscess drained over the right or left forearm many years ago, but did not recall. The patient is trying to undergo treatment and has been going to school. He states he is using Suboxone, but ran out and then relapsed and used heroin. He reports significant improvement in the pain and swelling since coming to the emergency room and receiving IV antibiotics. PAST MEDICAL HISTORY: Bipolar disorder, depression, seizure disorder PAST SURGICAL HISTORY: Denies. SOCIAL HISTORY: Significant tobacco, alcohol and drug use. The patient smokes 1 pack per day, uses multiple drugs including the last use of heroin with significant alcohol use. ALLERGIES: RISPERIDONE. MEDICATIONS: 1. Gabapentin. 2. Wellbutrin. PHYSICAL EXAMINATION: Patient is alert and oriented in no acute distress. The patient denies paresthesias in the right hand. Sensation intact in the median, ulnar and radial distribution, 2+ radial pulse. There is edema to the hand, but compartments are soft and compressible. Compartments of the forearm are soft and compressible. There is edema and swelling over the hand. No erythema over the forearm. There is erythema over the hand. The patient is able to make a fist and extend his fingers without pain. No pain with passive range of motion of the fingers or wrist. No obvious discrete abscess or area of fluctuance. LABORATORY DATA: White count of 16, ESR 21. CRP 7.9. IMAGING STUDIES: X-rays of the hand show no abnormalities. CT scan shows no discrete abscess. There is a small area concerning for air. ASSESSMENT AND PLAN: A 32-year-old male status post injecting heroin into the right hand and forearm. No evidence of compartment syndrome. No evidence of discrete abscess. At this time, I recommend placing the patient nothing by mouth as he just ate dinner. Recommend continued IV antibiotics and followup. At this time, no indication for surgical intervention. We will continue to follow patient closely. MD BAMBI Green , 10:19 PM , 10:36 PM [facility]
[2017-12-26] MEDS: VANCOMYCIN INJ 1,250 MG in SODIUM CHLOR 0.9% 250 ML INJ 250 ML IV SCH ×2 (00:25→08:28)
[2017-12-26 00:41] VITALS: BP 132/87; PULSE 96; RESP 18; TEMP 98.1; O2SAT 96
[2017-12-26] MEDS: SODIUM CHLOR 0.9% 1000 ML INJ 1,000 ML IV SCH ×2 (01:47→13:56)
[2017-12-26] MEDS: PIPERACIL-TAZO 3.375 GM PREMIX 50 ML IV SCH ×4 (05:54→23:44)
[2017-12-26] MEDS: GABAPENTIN 300 MG CAP PO SCH ×4 (05:54→23:44)
[2017-12-26 07:41] VITALS: BP 132/66; PULSE 88; RESP 16; TEMP 98.9; O2SAT 95
[2017-12-26] MEDS: NICOTINE 14 MG/24 HR PATCH T-DERMAL SCH (08:27)
[2017-12-26] MEDS: buPROPion HCL 100 MG SUSTAINED RELEASE TAB PO SCH ×2 (08:27→22:21)
[2017-12-26] MEDS: REMOVE OLD PATCH T-DERMAL SCH (08:27)
--- NOTE | 2017-12-26 09:30 | HHI.PR ---
Subjective Remarks Follow-up cellulitis, right hand. The patient states that the swelling has improved overnight. He states that it did get worse for a little while last night, but improved again this morning. No fevers or chills. No other complaints at this time. Objective Vitals Vital Signs Date Time Temp Pulse Resp B/P (MAP) Pulse Ox O2 Delivery O2 Flow Rate FiO2 12/26/17 07:41 98.9 88 16 132/66 (88) 95 12/26/17 00:41 98.1 96 18 132/87 (102) 96 12/25/17 19:00 98.2 101 18 124/84 (97) 98 12/25/17 18:18 97.8 98 18 125/78 (94) 99 12/25/17 16:42 12/25/17 16:41 18 12/25/17 15:47 91 14 124/72 (89) 98 Room Air 12/25/17 12:15 98.8 105 20 124/71 (88) 98 Result Diagram: 12/25/17 1340 12/25/17 1340 Imaging Last Impressions Hand X-Ray 12/25/17 1244 Signed Impressions: Service Date/Time: Monday, December 25, 2017 12:57 - CONCLUSION: 1. Soft tissue swelling about the dorsum of the hand without radiopaque foreign bodies. 2. No acute fracture or dislocation. Vikash Caruso MD Upper Extremity CT 12/25/17 0000 Signed Impressions: Service Date/Time: Monday, December 25, 2017 14:54 - CONCLUSION: Generalized soft tissue swelling without obvious distinct abscess. Tiny collection of air on the ventral radial side of the hand sitting just above the distal radius. There are no other associated inflammatory changes. Careful surveillance is suggested. Chris Pichardo MD FACR Objective Remarks General: No acute distress. Heart: Regular rate and rhythm. No murmur. Lungs: Clear to auscultation bilaterally. No wheezes, rales, or rhonchi. Breathing is nonlabored. Abdomen: Soft, nontender, nondistended. Extremities: No lower extremity edema. Right hand with swelling and erythema over the dorsum. Psych: Alert and oriented. Neuro: Normal speech. No focal deficits noted. Procedures None Urinary Catheter: No Vascular Central Line Catheter: No A/P Assessment and Plan 1. Sepsis, present on admission: Secondary to right hand cellulitis. Patient presented with leukocytosis, tachycardia. 2. Right hand cellulitis: Secondary to injection of heroin into the right hand. Improving. Continue IV antibiotics. Appreciate hand surgery recommendations. Nonoperative treatment recommended at this time. 3. Leukocytosis: Labs are pending this morning. Secondary to infection. 4. Anxiety: Continue bupropion, gabapentin. 5. DVT prophylaxis: CORDELL Allred while in bed. Deshaun Love MD December 26, 2017 09:30
[2017-12-26 09:59] LABS: AUTOMATED NEUTROPHIL # 11.8 TH/MM3 (1.8-7.7); BASOPHIL # 0.1 TH/MM3 (0-0.2); BASOPHIL % 0.4 % (0.0-2.0); EOSINOPHIL # 0.1 TH/MM3 (0-0.4); EOSINOPHIL % 0.9 % (0.0-4.0); HEMATOCRIT 39.9 % (39.0-51.0); HEMOGLOBIN 13.6 GM/DL (13.0-17.0); LYMPH % 11.6 % (9.0-44.0); LYMPHOCYTE # 1.7 TH/MM3 (1.0-4.8); MEAN CELL VOLUME 93.9 FL (80.0-100.0); MEAN CORPUSCULAR HEMOGLOBIN 32.1 PG (27.0-34.0); MEAN CORPUSCULAR HGB CONC 34.2 % (32.0-36.0); MEAN PLATELET VOLUME 8.6 FL (7.0-11.0); MONO % 7.9 % (0.0-8.0); MONOCYTE # 1.2 TH/MM3 (0-0.9); NEUT % 79.2 % (16.0-70.0); PLATELET COUNT 169 TH/MM3 (150-450); RED BLOOD COUNT 4.25 MIL/MM3 (4.50-5.90); RED CELL DISTRIBUTION WIDTH 12.5 % (11.6-17.2); WHITE BLOOD COUNT 14.9 TH/MM3 (4.0-11.0)
[2017-12-26 10:24] LABS: BANDS 11 % (0-6); LYMPHOCYTES 16 % (9-44); MONOCYTES 11 % (0-8); NEUTROPHIL # MANUAL DIFF 10.7 TH/MM3 (1.8-7.7); POLYS (SEG NEUTROPHILS) 61 % (16-70)
[2017-12-26 13:12] VITALS: BP 159/85; PULSE 80; RESP 20; TEMP 97.3; O2SAT 94
[2017-12-26 16:14] VITALS: BP 130/81; PULSE 95; RESP 20; TEMP 97.6; O2SAT 98
[2017-12-26] MEDS ORDERED: LORazepam 2 MG TAB PO PRN (17:30)
[2017-12-26] MEDS ORDERED: FLUMAZENIL 0.5 MG/5 ML VIAL IV PUSH PRN (17:30)
[2017-12-26] MEDS ORDERED: LORazepam 2 MG/ML VIAL IV PUSH PRN ×4 (17:30)
[2017-12-26] MEDS: LORazepam 1 MG TAB PO PRN ×2 (17:51→22:22)
[2017-12-26] MEDS: VANCOMYCIN INJ 2,000 MG in SODIUM CHLORID 0.9% 500 ML INJ 500 ML IV SCH (18:45)
--- NOTE | 2017-12-26 18:50 | PD.ORT.PN ---
Subjective Subjective Remarks Patient reports continued improvement overnight. Denies paresthesias. Objective Vitals Vital Signs Date Time Temp Pulse Resp B/P (MAP) Pulse Ox O2 Delivery O2 Flow Rate FiO2 12/26/17 16:14 97.6 95 20 130/81 (97) 98 12/26/17 13:12 97.3 80 20 159/85 (109) 94 12/26/17 07:41 98.9 88 16 132/66 (88) 95 12/26/17 00:41 98.1 96 18 132/87 (102) 96 12/25/17 19:00 98.2 101 18 124/84 (97) 98 I/O 12/25/17 12/25/17 12/25/17 12/26/17 12/26/17 12/26/17 07:00 15:00 23:00 07:00 15:00 23:00 Intake Total 0 ml Balance 0 ml Intake Oral 0 ml # Voids 3 # Bowel Movements 0 Result Diagram: 12/26/17 0855 12/25/17 1340 Objective Remarks Improved edema and erythema over hand, sitlt m/u/r, 2+ radial pulse, no fluctuance, no pain with passive or active ROM right hand Assessment & Plan Assessment and Plan 32yM s/p IVDU right hand -No sign of drainable abscess at this time -Continue Ab per primary team -Will continue to follow, followup Ana Maria Mccauley MD December 26, 2017 18:50
[2017-12-26 20:00] VITALS: BP 139/86; PULSE 87; RESP 18; TEMP 98.3; O2SAT 96
[2017-12-27] VITALS: BP 139/86; PULSE 87; RESP 18; TEMP 98.3; O2SAT 96
[2017-12-27] MEDS: SODIUM CHLOR 0.9% 1000 ML INJ 1,000 ML IV SCH ×2 (00:35→12:30)
[2017-12-27 04:00] VITALS: BP 137/89; PULSE 97; RESP 18; TEMP 97.7; O2SAT 99
[2017-12-27] MEDS: GABAPENTIN 300 MG CAP PO SCH ×2 (05:03→12:00)
[2017-12-27] MEDS: VANCOMYCIN INJ 2,000 MG in SODIUM CHLORID 0.9% 500 ML INJ 500 ML IV SCH (05:04)
[2017-12-27] MEDS: PIPERACIL-TAZO 3.375 GM PREMIX 50 ML IV SCH ×2 (05:04→12:00)
[2017-12-27 08:23] VITALS: BP 140/89; PULSE 84; RESP 20; TEMP 97.8; O2SAT 98
[2017-12-27] MEDS: buPROPion HCL 100 MG SUSTAINED RELEASE TAB PO SCH (09:08)
[2017-12-27] MEDS: REMOVE OLD PATCH T-DERMAL SCH (09:09)
[2017-12-27] MEDS: NICOTINE 14 MG/24 HR PATCH T-DERMAL SCH (09:09)
[2017-12-27 11:55] VITALS: BP 143/86; PULSE 103; RESP 20; TEMP 98.1; O2SAT 98
[2017-12-27] MEDS ORDERED: CEPH-460 PO (13:31)
--- NOTE | 2017-12-27 15:44 | HHI.PR ---
Subjective Remarks Patient says he is feeling much better. Denies any chest pain or shortness of breath. Reports hand pain much improved. Redness much improved. Objective Vital Signs Date Time Temp Pulse Resp B/P (MAP) Pulse Ox O2 Delivery O2 Flow Rate FiO2 12/27/17 11:55 98.1 103 20 143/86 (105) 98 12/27/17 08:23 97.8 84 20 140/89 (106) 98 12/27/17 04:00 97.7 97 18 137/89 (105) 99 12/27/17 00:00 98.3 87 18 139/86 (103) 96 12/26/17 20:00 98.3 87 18 139/86 (103) 96 12/26/17 16:14 97.6 95 20 130/81 (97) 98 I/O 12/26/17 12/26/17 12/26/17 12/27/17 12/27/17 12/27/17 06:59 14:59 22:59 06:59 14:59 22:59 Intake Total 502 ml Output Total 2 ml Balance 500 ml Intake Oral 0 ml IV Total 502 ml Output Urine Total 2 ml # Voids 3 3 # Bowel Movements 0 Result Diagram: 12/26/17 0855 12/25/17 1340 Objective Remarks GENERAL: Patient sitting up in chair at bedside working on [employer]. SKIN: Warm and dry. HEAD: Normocephalic. EYES: No scleral icterus. No injection or drainage. NECK: Supple, trachea midline. No JVD or lymphadenopathy. CARDIOVASCULAR: Regular rate and rhythm without murmurs, gallops, or rubs. RESPIRATORY: Breath sounds equal bilaterally. No accessory muscle use. GASTROINTESTINAL: Abdomen soft, non-tender, nondistended. MUSCULOSKELETAL: No cyanosis, or edema. Patient has approximately 2 x 2 centimeter area of induration and redness over the right dorsal hand. No broken skin. No pus. No crepitus. Nontender. BACK: Nontender without obvious deformity. No CVA tenderness. A/P Assessment and Plan //Sepsis, present on admission: Secondary to right hand cellulitis. Patient presented with leukocytosis, tachycardia. = Leukocytosis 14.9, improving. Cultures negative 2 days. Patient cleared for discharge by hand surgery. Discharge home on Keflex. Follow-up with primary care. //Right hand cellulitis: Secondary to injection of heroin into the right hand = Patient cleared for discharge by hand surgery. Discharge home on Keflex. Follow-up with primary care. Patient understands importance of follow-up. //Heroin use. Cessation counseling provided. //Anxiety: Continue bupropion, gabapentin. Patient is ambulatory. Discharge Planning Discharge home in good condition. Continue regular diet. Activity ad adrienne. Please see discharge medication reconciliation for medication list. Follow-up with primary care as outpatient. Immanuel Hinson MD December 27, 2017 15:44
--- NOTE | 2017-12-27 15:47 | HHI.DS ---
Discharge Summary Admission Date December 25, 2017 at 16:15 Discharge Date: December 27, 2017 Admitting Diagnosis Right upper extremity cellulitis, IVDA (1) IVDU (intravenous drug user) ICD Code: F19.90 - Other psychoactive substance use, unspecified, uncomplicated (2) Cellulitis of right hand ICD Code: L03.113 - Cellulitis of right upper limb Procedures None Brief History - From Admission 32-year-old white male being admitted for sepsis. Patient was in his usual state of health until about 2 days ago when he was injecting himself in his arm attempting IV drug use. Since then his right hand has become more swollen and painful. Says yesterday it was the most painful. But then today pain improved partially but he was still concerned enough to come to the hospital. Reports subjective fevers and chills as well as nausea. Patient gets very anxious when he hears that it will take approximately 48 hours for the blood cultures come back to ensure he does not have bacteremia. He says he was incarcerated before and he gets quite anxious just father being the thought of staying in the hospital for a few days even for necessary medical care. CBC/BMP: 12/26/17 0855 12/25/17 1340 Significant Findings Laboratory Tests Test 12/25/17 13:40 12/25/17 15:23 12/26/17 08:55 White Blood Count 16.0 TH/MM3 (4.0-11.0) 14.9 TH/MM3 (4.0-11.0) Red Blood Count 4.44 MIL/MM3 (4.50-5.90) 4.25 MIL/MM3 (4.50-5.90) Neutrophils (%) (Auto) 85.2 % (16.0-70.0) 79.2 % (16.0-70.0) Lymphocytes (%) (Auto) 7.1 % (9.0-44.0) Neutrophils # (Auto) 13.6 TH/MM3 (1.8-7.7) 11.8 TH/MM3 (1.8-7.7) Monocytes # (Auto) 1.2 TH/MM3 (0-0.9) 1.2 TH/MM3 (0-0.9) Erythrocyte Sedimentation Rate 21 mm/hr (0-15) Chloride Level 97 MEQ/L (98-107) Carbon Dioxide Level 33.5 MEQ/L (21.0-32.0) C-Reactive Protein 7.90 MG/DL (0.00-0.30) Band Neutrophils % 11 % (0-6) Monocytes % 11 % (0-8) Neutrophils # (Manual) 10.7 TH/MM3 (1.8-7.7) Imaging Last Impressions Hand X-Ray 12/25/17 1244 Signed Impressions: Service Date/Time: Monday, December 25, 2017 12:57 - CONCLUSION: 1. Soft tissue swelling about the dorsum of the hand without radiopaque foreign bodies. 2. No acute fracture or dislocation. Vikash Caruso MD Upper Extremity CT 12/25/17 0000 Signed Impressions: Service Date/Time: Monday, December 25, 2017 14:54 - CONCLUSION: Generalized soft tissue swelling without obvious distinct abscess. Tiny collection of air on the ventral radial side of the hand sitting just above the distal radius. There are no other associated inflammatory changes. Careful surveillance is suggested. Chris Pichardo MD FACR PE at Discharge General: No acute distress. Heart: Regular rate and rhythm. No murmur. Lungs: Clear to auscultation bilaterally. No wheezes, rales, or rhonchi. Breathing is nonlabored. Abdomen: Soft, nontender, nondistended. Extremities: No lower extremity edema. Right hand with swelling and erythema over the dorsum. Psych: Alert and oriented. Neuro: Normal speech. No focal deficits noted. Hospital Course CT of right hand on admission as above. Hand surgery consulted, examined patient, does not feel that intervention is necessary at this time. Cellulitis greatly improved on IV antibiotics. Patient will be discharged home on Keflex to complete treatment course. Patient is to follow-up in several days with primary care for monitoring, possible incision and drainage of subsequent abscess. Blood cultures negative 2 days, patient instructed to follow with primary care to review final results of blood cultures. For problem based summary from most recent progress note, please see below. //Sepsis, present on admission: Secondary to right hand cellulitis. Patient presented with leukocytosis, tachycardia. = Leukocytosis 14.9, improving. Cultures negative 2 days. Patient cleared for discharge by hand surgery. Discharge home on Keflex. Follow-up with primary care. //Right hand cellulitis: Secondary to injection of heroin into the right hand = Patient cleared for discharge by hand surgery. Discharge home on Keflex. Follow-up with primary care. Patient understands importance of follow-up. //Heroin use. Cessation counseling provided. //Anxiety: Continue bupropion, gabapentin. Patient is ambulatory. Discharge Planning Discharge home in good condition. Continue regular diet. Activity ad adrienne. Please see discharge medication reconciliation for medication list. Follow-up with primary care as outpatient. Pt Condition on Discharge: Good Discharge Disposition: Discharge Home Discharge Time: > 30 minutes Discharge Instructions DIET: Follow Instructions for: As Tolerated, No Restrictions Activities you can perform: Regular-No Restrictions Follow up Referrals: PCP Follow-up - 3-5 Days with [facility] New Medications: Cephalexin (Keflex) 500 Mg Capsule 500 MG PO Q6H for Infection for 10 Days, #40 CAP 0 Refills Continued Medications: Bupropion HCl ER 12 HR (Wellbutrin SR 12 HR) 100 Mg Tab 100 MG PO Q12HR for Control Depression, TAB 0 Refills Gabapentin (Gabapentin) 600 Mg Tab 600 MG PO Q6HR, #90 TAB 0 Refills Immanuel Hinson MD December 27, 2017 15:46
[2017-12-28] MEDS ORDERED: PHARMACY ORDERED LAB ONE (05:45)
== END 2017-12-27 16:21 | disposition home or self-care (01) | DRG 872 ==
LOC: NEPD 12:08 → NEDA 15:46 → OBSVTOIN 16:15 → NEPGCP 16:47 → N05B 12-26 13:00
PROVIDERS: ADMIT Internal Medicine; ATTEND Internal Medicine
DX: A41.9 Sepsis, unspecified organism (principal); F11.10 Opioid abuse, uncomplicated; L03.113 Cellulitis of right upper limb; L02.511 Cutaneous abscess of right hand; F41.9 Anxiety disorder, unspecified; F17.210 Nicotine dependence, cigarettes, uncomplicated
CPT/HCPCS: 73120; 73201; 76937; 80048; 83605; 85007; 85025; 85027; 85652; 86140; 87040; J1885; J2060; J2543; J3370; J7030; J7040; J7050; Q9967